=== PATIENT | male | born 1970 | race Two or more races ===

== ENCOUNTER 2024-01-03 20:41 | Emergency (ER) | payer SELFPAY ==
[~2024-01-03] VITALS: Ht 172.7 cm; Wt 72.6 kg
[2024-01-03 20:58] VITALS: BP 131/80; RESP 16; O2SAT 100
[2024-01-03] MEDS ORDERED: SODIUM CHLORIDE 0.9% 1,000 ML IV ONE (21:15)
[2024-01-03 21:34] VITALS: PULSE 80
[2024-01-03 21:56] LABS: Basophils # (auto) 0 10 ^3/uL (0-0.2); Basophils % (auto) 0.2 % (0.0-2.0); Eosinophils # (auto) 0.2 10 ^3/uL (0-0.8); Eosinophils % (auto) 2.2 % (0.0-7.0); Hematocrit 37.7 % (41.0-53.0); Hemoglobin 12.9 g/dL (13.5-17.5); Lymphocytes # (auto) 0.8 10 ^3/uL (0.4-5.4); Lymphocytes % (auto) 11.5 % (10.0-50.0); Mean Corpuscular Hemoglobin 31.4 pg (28.0-32.0); Mean Corpuscular Hgb Conc. 34.2 g/dL (32.0-36.0); Mean Corpuscular Volume 91.9 fL (80.0-100.0); Monocytes # (auto) 0.5 10 ^3/uL (0-1.3); Monocytes % (auto) 6.6 % (0.0-12.0); Neutrophils # (auto) 5.8 10 ^3/uL (1.6-8.6); Neutrophils % (auto) 79.5 % (37.0-80.0); Red Cell Distribution Width 14.8 % (11.8-14.3); White Blood Cell 7.3 10^3/uL (4.4-10.8)
[2024-01-03 22:06] LABS: Chloride 104 mmol/L (98-107); Potassium 3.7 mmol/L (3.5-5.1); Sodium 138 mmol/L (136-145)
[2024-01-03 22:07] LABS: Anion Gap 7 (5-15); Calcium 9.4 mg/dL (8.5-10.1); Carbon Dioxide 27 mmol/L (20-30)
[2024-01-03 22:12] LABS: BUN/Creatinine Ratio 22.1 (10.0-20.0); Blood Urea Nitrogen 23 mg/dL (9-23)
[2024-01-03 22:21] LABS: Glucose 40 mg/dL (74-106)
== END 2024-01-03 22:24 | disposition left against medical advice (07) ==
LOC: EDBD 20:41 → ER 20:41
DX: R53.1 Weakness (principal); E10.649 Type 1 diabetes mellitus with hypoglycemia without coma
CPT/HCPCS: 36415; 80048; 85025; 93005